=== PATIENT | female | born 1945 | race Caucasian/White ===

== ENCOUNTER 2016-09-01 12:52 | Outpatient (CLI) | payer MEDICARE, OTHER ==
[~2016-09-01] VITALS: Ht 167.6 cm; Wt 68.2 kg
[~2016-09-01 12:52] MED LIST: CALCIUM1 CAP PO; CLARITIN 1010 MG/TAB PO; EPA/GLA1 SGL PO; GLUCOSAMINE PO; NORCO 325 MG-7.1 TAB PO; PERCR 7.5 PO; RT ADVAIR 228 DISKUS IH; SYNTHROID0.125 MG/T PO; [UNRECOGNIZED DRUG - OTHER]
[2016-09-01] MEDS ORDERED: ALEVE 220MG220 MG PO (13:23)
[2016-09-01] MEDS ORDERED: PROBIOTIC FORMU1 CAP PO (13:23)
[2016-09-01] MEDS ORDERED: NEURONTIN400 MG/CAP PO (13:24)
[2016-09-01] MEDS ORDERED: NEURONTIN100 MG/CAP PO (13:24)
[2016-09-01 13:25] VITALS: BP 146/65; PULSE 65; TEMP 97.9
== END 2016-09-01 14:53 | disposition home or self-care (01) ==
LOC: EUO 12:52
DX: M81.0 Age-related osteoporosis without current pathological fracture (principal)
CPT/HCPCS: J3489

== ENCOUNTER 2017-08-02 10:32 | Outpatient (CLI) | payer MEDICARE, OTHER ==
[~2017-08-02] VITALS: Ht 167.6 cm; Wt 66.8 kg
[~2017-08-02 10:32] MED LIST changes: +ALEVE 220MG220 MG PO; +NEURONTIN100 MG/CAP PO; +NEURONTIN400 MG/CAP PO; +PROBIOTIC FORMU1 CAP PO; +SYNTHROID0.1 MG/TAB PO; -SYNTHROID0.125 MG/T PO
[2017-08-02] MEDS ORDERED: PREDNISONE 5MG5 MG PO (11:16)
[2017-08-02 11:18] VITALS: BP 146/76; PULSE 86; TEMP 98.3
== END 2017-08-02 13:00 | disposition home or self-care (01) ==
LOC: EUO 10:32
DX: M81.0 Age-related osteoporosis without current pathological fracture (principal)
CPT/HCPCS: J3489

== ENCOUNTER → 2017-12-21 | Outpatient (CLI) | payer MEDICARE, OTHER ==
[~2017-12-21] MED LIST changes: +PREDNISONE 5MG5 MG PO
== END ==
LOC: MC.RAD 10:48
DX: Z12.31 Encounter for screening mammogram for malignant neoplasm of breast (principal)

== ENCOUNTER 2018-12-24 14:45 | Outpatient (CLI) | payer MEDICARE, OTHER ==
[~2018-12-24] VITALS: Ht 167.6 cm; Wt 70.9 kg
[2018-12-24 15:00] VITALS: BP 121/75; PULSE 75; TEMP 97.8
[2018-12-24] MEDS ORDERED: METHOTREXA2.5 MG/TAB INJ (15:11)
[2018-12-24] MEDS ORDERED: IMODIUM A-D2 MG PO (15:13)
[2018-12-24] MEDS ORDERED: BENADRYL25 M2 PO (15:14)
[2018-12-24] MEDS ORDERED: PERCOCET 325 MG1 TAB PO (15:14)
[2018-12-24] MEDS ORDERED: PROBIOTIC FORMU1 CAP PO (15:15)
== END 2018-12-24 15:40 | disposition home or self-care (01) ==
LOC: EUO 14:45
DX: M81.0 Age-related osteoporosis without current pathological fracture (principal); Z79.899 Other long term (current) drug therapy
CPT/HCPCS: J3489

== ENCOUNTER → 2019-03-20 | Outpatient (CLI) | payer MEDICARE, OTHER ==
[~2019-03-20] MED LIST changes: +BENADRYL25 M2 PO; +IMODIUM A-D2 MG PO; +METHOTREXA2.5 MG/TAB INJ; +PERCOCET 325 MG1 TAB PO
== END ==
LOC: MC.RAD 12:45
DX: Z12.31 Encounter for screening mammogram for malignant neoplasm of breast (principal)

== ENCOUNTER 2020-08-19 12:17 | Outpatient (CLI) | payer MEDICARE, OTHER ==
[~2020-08-19] VITALS: Ht 167.6 cm; Wt 75.3 kg
[~2020-08-19 12:17] MED LIST changes: -METHOTREXA2.5 MG/TAB INJ; +XATMEP2.5 MG/1 M IM
[2020-08-19] MEDS ORDERED: CURCUMIN95% PO (12:35)
[2020-08-19] MEDS ORDERED: CRANBERRY 100 M1 SGL PO (12:36)
[2020-08-19] MEDS ORDERED: VITAMINC1000TA PO (12:37)
[2020-08-19] MEDS ORDERED: FOLIC ACID800 MCG PO (12:37)
[2020-08-19] MEDS ORDERED: PHARMASSURE ZIN50 MG PO (12:38)
[2020-08-19] MEDS ORDERED: PRESERVISION1 SGL PO (12:39)
[2020-08-19 12:44] VITALS: BP 126/76; PULSE 60; TEMP 97.7
== END 2020-08-19 14:39 | disposition home or self-care (01) ==
LOC: EUO 12:17
DX: M81.0 Age-related osteoporosis without current pathological fracture (principal)
CPT/HCPCS: J3489

== ENCOUNTER 2023-07-10 15:13 | Outpatient (CLI) | payer MEDICARE, OTHER ==
[~2023-07-10] VITALS: Ht 167.6 cm; Wt 72.1 kg
[~2023-07-10 15:13] MED LIST changes: +CRANBERRY 100 M1 SGL PO; +CURCUMIN95% PO; +FOLIC ACID800 MCG PO; +PHARMASSURE ZIN50 MG PO; +PRESERVISION1 SGL PO; -SYNTHROID0.1 MG/TAB PO; +SYNTHROID0.112 MG/T PO; +VITAMINC1000TA PO
[2023-07-10] MEDS ORDERED: Denosumab 60 MG/ML SYRINGE SQ ONE (15:30)
[2023-07-10] MEDS ORDERED: IMODIUM 2MG CAPS2 MG PO (15:31)
[2023-07-10 15:34] VITALS: BP 157/96; PULSE 73; TEMP 98.3
== END 2023-07-10 15:51 ==
LOC: EUO 15:13
DX: M81.0 Age-related osteoporosis without current pathological fracture (principal)
CPT/HCPCS: J0897